=== PATIENT | female | born 1970 | race African-American/Black ===

== ENCOUNTER 2016-08-01 19:45 | Emergency (ER) | payer MEDICAID ==
[~2016-08-01] VITALS: Ht 154.9 cm; Wt 102.5 kg
[~2016-08-01 19:45] MED LIST: METFORMIN; Motrin; Naproxen; Omeprazole
[2016-08-01] MEDS ORDERED: BACITRACIN ZINC OINT UDPKT TOP ONE (21:00)
[2016-08-01] MEDS ORDERED: LIDOCAINE HCL 1% 20ML VIAL (Pyxis) INJ MC ONE (21:00)
[2016-08-01] MEDS ORDERED: MORPHINE SULFATE 10 MG/ML CPJ IM ONE (23:15)
[2016-08-01] MEDS ORDERED: MORPHINE SULFATE 4 MG/ML CPJ (NOT FOR IM USE) IV ONE (23:15)
[2016-08-02 00:20] VITALS: BP 130/72
[2016-08-02 00:28] LABS: CLARITY URINE CLOUDY (CLEAR); COLOR URINE YELLOW (YELLOW); GLUCOSE URINE 2+ (NEGATIVE); KETONES URINE NEGATIVE (NEGATIVE); LEUKOCYTE ESTERASE URINE 3+ (NEGATIVE); NITRITE URINE POSITIVE (NEGATIVE); OCCULT BLOOD URINE 3+ (NEGATIVE); PROTEIN URINE NEGATIVE (NEGATIVE); SPECIFIC GRAVITY URINE 1.015 (1.005-1.030)
[2016-08-02 00:56] LABS: SQUAMOUS EPITHELIAL CELL URINE 1+ /lpf (RARE/1+)
[2016-08-02 00:57] LABS: WBC URINE 50-100 /hpf (0-2)
[2016-08-02 00:58] LABS: BACTERIA URINE 4+
== END 2016-08-02 04:39 | disposition home or self-care (01) ==
LOC: ER 19:45
DX: S70.02XA Contusion of left hip, initial encounter (principal); S70.12XA Contusion of left thigh, initial encounter; L02.412 Cutaneous abscess of left axilla; E11.9 Type 2 diabetes mellitus without complications; E78.00 Pure hypercholesterolemia, unspecified; F17.210 Nicotine dependence, cigarettes, uncomplicated; Z79.4 Long term (current) use of insulin; Z79.899 Other long term (current) drug therapy; W01.0XXA Fall on same level from slipping, tripping and stumbling without subsequent striking against object, initial encounter; Y93.89 Activity, other specified; Y92.89 Other specified places as the place of occurrence of the external cause; Y99.8 Other external cause status
CPT/HCPCS: 73522; 73552; 81001; 96374; 99285; J2270; J3490; Z7610

== ENCOUNTER 2016-08-05 11:52 | Emergency (ER) | payer MEDICAID ==
[~2016-08-05] VITALS: Ht 154.9 cm; Wt 103.0 kg
[2016-08-05 12:16] VITALS: BP 107/80
== END 2016-08-05 13:40 | disposition home or self-care (01) ==
LOC: ER 11:52
DX: Z48.01 Encounter for change or removal of surgical wound dressing (principal); E78.5 Hyperlipidemia, unspecified; E11.9 Type 2 diabetes mellitus without complications; E78.00 Pure hypercholesterolemia, unspecified; G82.20 Paraplegia, unspecified; F17.200 Nicotine dependence, unspecified, uncomplicated; Z79.899 Other long term (current) drug therapy; Z79.84 Long term (current) use of oral hypoglycemic drugs
CPT/HCPCS: 99282; X7700; Z7610